=== PATIENT | female | born 1970 | race African-American/Black ===

== ENCOUNTER 2024-06-04 16:02 | Inpatient (IN) | payer OTHER ==
[~2024-06-04] VITALS: Ht 157.5 cm; Wt 45.4 kg
[2024-06-04 16:52] LABS: HEMATOCRIT. 43.7 % (36.0-48.0); MEAN CORPUSCULAR VOLUME 103.3 fL (81.0-99.0); PLATELET 187 x1000/uL (130-400); RED BLOOD CELL COUNT 4.23 mill/uL (4.2-5.4); RED CELL DISTRIBUTION WIDTH 15.2 % (11.6-14.6); WHITE BLOOD COUNT 5.3 x1000/uL (4.5-11.0)
[2024-06-04 16:53] LABS: DIFFERENTIAL COMMENT 1
[2024-06-04] MEDS: SODIUM CHLORIDE 0.9% 1,000 ML IV ONE ×2 (16:57)
[2024-06-04 16:59] LABS: BG BASE EXCESS -23.3 mmol/L (-2.0-3.0); BG CARBOXYHEMOGLOBIN 0.9 % (0.5-1.5); BG DEOXYHEMOGLOBIN 1.3 % (0.0-5.0); BG FRACTION INSPIRED OXYGEN 21; BG HCO3 ACT 3.7 mmol/L (21.0-28.0); BG METHEMOGLOBIN 0.1 % (0.5-1.5); BG OXYGEN SATURATION 98.7 % (94.0-98.0); BG OXYHEMOGLOBIN 97.7 % (94.0-98.0); BG PH 7.111 (7.350-7.450); BG PO2 147.1 mmHg (83.0-108.0); BG SAMPLE SITE LEFT BRACHIAL; BG TOTAL HEMOGLOBIN 14.7 g/dL (12.0-16.0); BG VENT MODE ROOM AIR
[2024-06-04 17:02] LABS: CHLORIDE 90 mEq/L (98-107); POTASSIUM 4.6 mEq/L (3.5-5.1); SODIUM 126 mEq/L (136-145)
[2024-06-04 17:04] LABS: CALCIUM 9.8 mg/dL (8.7-10.4)
[2024-06-04 17:05] LABS: HCG SCREEN NEGATIVE
[2024-06-04 17:08] LABS: CREATININE 2.6 mg/dL (0.6-1.0)
[2024-06-04 17:09] LABS: UREA NITROGEN BLOOD 65 mg/dL (9-23)
[2024-06-04 17:11] LABS: BETA HYDROXYBUTYRATE 12.7 mMol/L (0.0-0.3)
[2024-06-04] MEDS ORDERED: MAGNESIUM 2 G PREMIX 50 ML IV PRN (17:15)
[2024-06-04] MEDS ORDERED: KCL 20MEQ/100ML PREMIX 100 ML IV PRN (17:15)
[2024-06-04] MEDS ORDERED: BLOOD SUGAR DIAGNOSTIC STRIP TEST PRN (17:15)
[2024-06-04] MEDS: DEXT 5%/0.9% NACL 1,000 ML IV SCH (17:15)
[2024-06-04] MEDS ORDERED: DEXTROSE 50% WATER 50ML SYRINGE IV PRN (17:15)
[2024-06-04] MEDS: SODIUM CHLORIDE 0.9% 1,000 ML IV SCH (17:15)
[2024-06-04] MEDS ORDERED: SODIUM PHOSPHATE 15 MMOL in SODIUM CHLORIDE 0.9% 245 ML IV PRN (17:15)
[2024-06-04] MEDS ORDERED: POTASSIUM CHLORIDE 40 MEQ in SODIUM CHLORIDE 0.9% 230 ML IV PRN (17:15)
[2024-06-04 17:28] LABS: CARBON DIOXIDE < 10 mEq/L (21-32)
[2024-06-04 17:29] LABS: ETHANOL BLOOD < 10 mg/dL (<10); GLUCOSE 779 mg/dL (70-105); TROPONIN I HIGH SENSITIVITY 37 ng/L (3.0-34)
[2024-06-04] MEDS: BLOOD SUGAR DIAGNOSTIC STRIP TEST SCH (17:36)
[2024-06-04] MEDS: INSULIN REGULAR 100U/100ML PMX 100 ML IV SCH (20:42)
[2024-06-04] MEDS ORDERED: INSULIN REGULAR 100U/100ML PMX 100 ML IV SCH (20:45)
[2024-06-04 20:47] LABS: GLUCOSE URINE 3+ (NEGATIVE); KETONES URINE 3+ (NEGATIVE)
[2024-06-04 21:11] LABS: ANISOCYTOSIS 1+; PLATELET ESTIMATE NORMAL
[2024-06-04 21:13] LABS: CLARITY URINE CLEAR (CLEAR); COLOR URINE YELLOW (YELLOW)
[2024-06-04 21:14] LABS: PH URINE 5.5 (4.5-8.0); PROTEIN URINE TRACE (NEGATIVE); SPECIFIC GRAVITY URINE 1.028 (1.005-1.030)
[2024-06-04 21:15] LABS: LEUKOCYTE ESTERASE URINE NEGATIVE (NEGATIVE); NITRITE URINE NEGATIVE (NEGATIVE); OCCULT BLOOD URINE 1+ (NEGATIVE); UROBILINOGEN URINE 0.2 E.U./dL (0.2-1.0)
[2024-06-04 21:17] LABS: BACTERIA URINE TRACE; RBC URINE 0-2 /hpf (0-2); SQUAMOUS EPITHELIAL CELL URINE FEW /lpf (RARE/1+); WBC URINE 0-2 /hpf (0-2)
[2024-06-05 03:07] LABS: HEMOGLOBIN. 13.5 g/dL (12.0-16.0); MEAN CORPUSCULAR HEMOGLOBIN 33.2 pg (28.0-32.0); MEAN CORPUSCULAR HGB CONC 32.8 g/dL (31.0-37.0); MEAN CORPUSCULAR VOLUME 101.3 fL (81.0-99.0); MEAN PLATELET VOLUME 7.2 fl (7.4-10.4); PLATELET 169 x1000/uL (130-400); RED BLOOD CELL COUNT 4.05 mill/uL (4.2-5.4); RED CELL DISTRIBUTION WIDTH 15.7 % (11.6-14.6); WHITE BLOOD COUNT 7.1 x1000/uL (4.5-11.0)
[2024-06-05 03:08] LABS: DIFFERENTIAL COMMENT 1
[2024-06-05 03:09] LABS: CHLORIDE 112 mEq/L (98-107); POTASSIUM 3.4 mEq/L (3.5-5.1)
[2024-06-05 03:10] LABS: CALCIUM 9.8 mg/dL (8.7-10.4); CARBON DIOXIDE 11 mEq/L (21-32)
[2024-06-05 03:15] LABS: GLUCOSE 123 mg/dL (70-105); UREA NITROGEN BLOOD 48 mg/dL (9-23)
[2024-06-05] MEDS ORDERED: ACETAMINOPHEN 325MG TABLET PO PRN ×2 (03:15)
[2024-06-05 03:17] LABS: ALANINE AMINOTRANSFERASE 15 IU/L (10-49); ALBUMIN 4.6 g/dL (3.2-4.8); ASPARTATE AMINOTRANSFERASE 12 IU/L (<34); BILIRUBIN TOTAL 0.4 mg/dL (0.1-1.0)
[2024-06-05 03:18] LABS: PROTEIN TOTAL 7.4 g/dL (6.0-8.3)
[2024-06-05 03:36] LABS: BG BASE EXCESS -18.2 mmol/L (-2.0-3.0); BG CARBOXYHEMOGLOBIN 1.1 % (0.5-1.5); BG DEOXYHEMOGLOBIN 1.6 % (0.0-5.0); BG FRACTION INSPIRED OXYGEN 21; BG HCO3 ACT 7.1 mmol/L (21.0-28.0); BG METHEMOGLOBIN 0.3 % (0.5-1.5); BG OXYGEN SATURATION 98.4 % (94.0-98.0); BG PCO2 17.9 mmHg (32.0-45.0); BG PH 7.218 (7.350-7.450); BG PO2 119.5 mmHg (83.0-108.0); BG SAMPLE SITE RIGHT RADIAL; BG TOTAL HEMOGLOBIN 14.4 g/dL (12.0-16.0); BG VENT MODE ROOM AIR
[2024-06-05 04:07] LABS: CREATININE 1.8 mg/dL (0.6-1.0); SODIUM 146 mEq/L (136-145)
[2024-06-05 04:50] LABS: BETA HYDROXYBUTYRATE 7.8 mMol/L (0.0-0.3)
[2024-06-05 05:42] LABS: PLATELET ESTIMATE NORMAL
[2024-06-05 06:03] LABS: CHLORIDE 111 mEq/L (98-107); POTASSIUM 3.6 mEq/L (3.5-5.1); SODIUM 146 mEq/L (136-145)
[2024-06-05 06:04] LABS: CALCIUM 9.7 mg/dL (8.7-10.4); CARBON DIOXIDE 10 mEq/L (21-32)
[2024-06-05 06:09] LABS: CREATININE 1.8 mg/dL (0.6-1.0); GLUCOSE 207 mg/dL (70-105); UREA NITROGEN BLOOD 50 mg/dL (9-23)
[2024-06-05 06:11] LABS: PHOSPHORUS 1.9 mg/dL (2.5-4.9)
[2024-06-05] MEDS: DEXT 5%/0.45% NACL 1000ML 1,000 ML IV SCH (06:12)
[2024-06-05 08:46] LABS: BG BASE EXCESS -19.6 mmol/L (-2.0-3.0); BG CARBOXYHEMOGLOBIN 0.8 % (0.5-1.5); BG DEOXYHEMOGLOBIN 1.8 % (0.0-5.0); BG HCO3 ACT 6.4 mmol/L (21.0-28.0); BG METHEMOGLOBIN 0.3 % (0.5-1.5); BG OXYGEN SATURATION 98.2 % (94.0-98.0); BG OXYHEMOGLOBIN 97.1 % (94.0-98.0); BG PCO2 17.2 mmHg (32.0-45.0); BG PH 7.189 (7.350-7.450); BG PO2 119.2 mmHg (83.0-108.0); BG SAMPLE SITE RIGHT BRACHIAL; BG TOTAL HEMOGLOBIN 13.3 g/dL (12.0-16.0); BG VENT MODE ROOM AIR
[2024-06-05] MEDS: KCL 20MEQ/100ML PREMIX 100 ML IV SCH ×2 (09:05→10:16)
[2024-06-05] MEDS: BLOOD SUGAR DIAGNOSTIC STRIP TEST SCH (10:22)
[2024-06-05] MEDS: ENOXAPARIN 30MG/0.3ML SYR SUBCUT SCH (10:22)
[2024-06-05 12:25] LABS: CALCIUM 9.5 mg/dL (8.7-10.4); CARBON DIOXIDE 12 mEq/L (21-32); CHLORIDE 113 mEq/L (98-107); POTASSIUM 3.6 mEq/L (3.5-5.1); SODIUM 144 mEq/L (136-145)
[2024-06-05 12:29] LABS: CREATININE 1.8 mg/dL (0.6-1.0)
[2024-06-05 12:31] LABS: UREA NITROGEN BLOOD 44 mg/dL (9-23)
[2024-06-05 13:17] LABS: GLUCOSE 402 mg/dL (70-105)
[2024-06-05 13:18] LABS: PHOSPHORUS 0.5 mg/dL (2.5-4.9)
[2024-06-05] MEDS: POTASSIUM PHOSPHATE 20 MMOL in DEXT 5% WATER 243.3333 ML IV NR (13:37)
[2024-06-05] MEDS: SODIUM BICARBONATE 150 MEQ in DEXTROSE 5% WATER 850 ML IV SCH (15:02)
[2024-06-05] MEDS ORDERED: POTASSIUM PHOSPHATE 30 MMOL in SODIUM CHLORIDE 0.9% 500 ML IV NR (18:30)
[2024-06-05 19:06] LABS: BG BASE EXCESS -2.7 mmol/L (-2.0-3.0); BG CARBOXYHEMOGLOBIN 0.8 % (0.5-1.5); BG DEOXYHEMOGLOBIN 1.8 % (0.0-5.0); BG FRACTION INSPIRED OXYGEN 21; BG HCO3 ACT 19.4 mmol/L (21.0-28.0); BG METHEMOGLOBIN 0.3 % (0.5-1.5); BG OXYGEN SATURATION 98.2 % (94.0-98.0); BG OXYHEMOGLOBIN 97.1 % (94.0-98.0); BG PCO2 26.1 mmHg (32.0-45.0); BG PH 7.489 (7.350-7.450); BG PO2 99.3 mmHg (83.0-108.0); BG SAMPLE SITE RIGHT BRACHIAL; BG VENT MODE ROOM AIR
[2024-06-05 20:14] LABS: BASOPHILS % 0.4 % (0.0-2.0); EOSINOPHILS % 0.1 % (0.0-5.0); HEMATOCRIT. 35.3 % (36.0-48.0); HEMOGLOBIN. 12.1 g/dL (12.0-16.0); LYMPHOCYTES % 13.8 % (20.0-50.0); MEAN CORPUSCULAR HEMOGLOBIN 33.2 pg (28.0-32.0); MEAN CORPUSCULAR HGB CONC 34.4 g/dL (31.0-37.0); MEAN CORPUSCULAR VOLUME 96.6 fL (81.0-99.0); MEAN PLATELET VOLUME 7.7 fl (7.4-10.4); MONOCYTES % 12.8 % (2.0-8.0); NEUTROPHILS % 72.9 % (40.0-76.0); PLATELET 145 x1000/uL (130-400); RED BLOOD CELL COUNT 3.65 mill/uL (4.2-5.4); RED CELL DISTRIBUTION WIDTH 15.6 % (11.6-14.6); WHITE BLOOD COUNT 4.3 x1000/uL (4.5-11.0)
[2024-06-05 20:19] LABS: CHLORIDE 114 mEq/L (98-107); POTASSIUM 3.4 mEq/L (3.5-5.1); SODIUM 147 mEq/L (136-145)
[2024-06-05 20:20] LABS: CALCIUM 9.2 mg/dL (8.7-10.4); CARBON DIOXIDE 24 mEq/L (21-32)
[2024-06-05 20:25] LABS: CREATININE 1.4 mg/dL (0.6-1.0); GLUCOSE 166 mg/dL (70-105); UREA NITROGEN BLOOD 29 mg/dL (9-23)
[2024-06-05 20:27] LABS: ALANINE AMINOTRANSFERASE 13 IU/L (10-49); ALBUMIN 4.2 g/dL (3.2-4.8); ASPARTATE AMINOTRANSFERASE 18 IU/L (<34)
[2024-06-05 20:28] LABS: BILIRUBIN TOTAL 0.3 mg/dL (0.1-1.0); PROTEIN TOTAL 6.5 g/dL (6.0-8.3)
[2024-06-05] MEDS: ONDANSETRON HCL 4MG/2ML INJ IV PRN (21:07)
[2024-06-05] MEDS ORDERED: DEXTROSE 50% WATER 50ML SYRINGE IV PRN (21:15)
[2024-06-05] MEDS: INSULIN GLARGINE 100 UNITS/ML SUBCUT SCH (22:00)
[2024-06-05] MEDS: SODIUM CHL 0.45% + KCL 20MEQ/L 1,000 ML IV SCH (22:00)
[2024-06-06] VITALS (7 sets, daily range): BP systolic 112–160; BP diastolic 71–155; PULSE 87–100; RESP 17–19; TEMP 35.72508–36.72516; O2SAT 98–99
[2024-06-06] MEDS: BLOOD SUGAR DIAGNOSTIC STRIP TEST SCH (07:20)
[2024-06-06 08:51] LABS: CARBON DIOXIDE 25 mEq/L (21-32); CHLORIDE 107 mEq/L (98-107); SODIUM 145 mEq/L (136-145)
[2024-06-06 08:57] LABS: CREATININE 1.1 mg/dL (0.6-1.0); GLUCOSE 274 mg/dL (70-105); UREA NITROGEN BLOOD 20 mg/dL (9-23)
[2024-06-06 08:58] LABS: BASOPHILS % 0.4 % (0.0-2.0); EOSINOPHILS % 0.1 % (0.0-5.0); HEMATOCRIT. 33.3 % (36.0-48.0); HEMOGLOBIN. 11.4 g/dL (12.0-16.0); LYMPHOCYTES % 20.3 % (20.0-50.0); MEAN CORPUSCULAR HEMOGLOBIN 33.2 pg (28.0-32.0); MEAN CORPUSCULAR HGB CONC 34.2 g/dL (31.0-37.0); MEAN CORPUSCULAR VOLUME 97.3 fL (81.0-99.0); MEAN PLATELET VOLUME 7.8 fl (7.4-10.4); MONOCYTES % 14.7 % (2.0-8.0); NEUTROPHILS % 64.5 % (40.0-76.0); PLATELET 123 x1000/uL (130-400); RED BLOOD CELL COUNT 3.43 mill/uL (4.2-5.4); RED CELL DISTRIBUTION WIDTH 15.6 % (11.6-14.6); WHITE BLOOD COUNT 3.7 x1000/uL (4.5-11.0)
[2024-06-06 08:59] LABS: PHOSPHORUS 1.7 mg/dL (2.5-4.9)
[2024-06-06 09:12] LABS: POTASSIUM 2.7 mEq/L (3.5-5.1)
[2024-06-06] MEDS: INSULIN LISPRO 100 UNITS/ML SUBCUT SCH (09:34)
[2024-06-06] MEDS ORDERED: AMLO5TAB88 PO (09:45)
[2024-06-06] MEDS ORDERED: LOSA1TAB34 PO (09:50)
[2024-06-06] MEDS ORDERED: ANAS1TAB49 PO (09:50)
[2024-06-06] MEDS ORDERED: ATOR-2 PO (09:50)
[2024-06-06] MEDS ORDERED: GABA-1180 PO (09:50)
[2024-06-06] MEDS ORDERED: ATEN-42 PO (09:50)
[2024-06-06] MEDS: POTASSIUM CHLORIDE 20MEQ TABLET SR PO NR (11:35)
[2024-06-06] MEDS: POTASSIUM PHOSPHATE 30 MMOL in SODIUM CHLORIDE 0.9% 490 ML IV NR (12:00)
[2024-06-06] MEDS: MAGNESIUM 4 G PREMIX 100 ML IV NR (13:25)
[2024-06-06] MEDS ORDERED: PANTOPRAZOLE SODIUM 40 MG/VIAL IV SCH (19:00)
[2024-06-06] MEDS ORDERED: SUCRALFATE 1G TABLET PO SCH (21:00)
== END 2024-06-06 19:47 | disposition short-term general hospital (02) | DRG 637 ==
LOC: ER 16:02 → EDBEDREQTM 19:54 → EDBEDREQ 19:54 → EDBEDREQSVC 06-06 00:17 → 6EST 06-06 01:36
PROVIDERS: ADMIT Internal Medicine; ATTEND Internal Medicine
DX: E11.10 Type 2 diabetes mellitus with ketoacidosis without coma (principal); G93.41 Metabolic encephalopathy; N17.9 Acute kidney failure, unspecified; E83.39 Other disorders of phosphorus metabolism; E83.42 Hypomagnesemia; E87.6 Hypokalemia; I10 Essential (primary) hypertension; K20.90 Esophagitis, unspecified without bleeding; Z85.3 Personal history of malignant neoplasm of breast; Z83.3 Family history of diabetes mellitus
CPT/HCPCS: 36415; 36600; 71045; 74176; 80048; 80320; 81003; 82010; 82375; 82805; 82962; 83735; 83930; 84100; 84484; 84703; 85025; 93005; 99291; J1650; J1815; J2405; J3475; J3480; J3490; J7030; J7040; J7060; J7070; G0480